=== PATIENT | male | born 1995 | race Caucasian/White ===

== ENCOUNTER 2020-02-24 13:18 | Outpatient (CLI) | payer OTHER ==
[2020-02-24 14:44] VITALS: BP 127/92
--- NOTE | 2020-02-24 14:44 | SLEEP CARE CONSULTATION ---
Information from patient questionnaire entered by Lisa Ni. I have reviewed and concur with the information entered by Lisa Ni. This document represents the service I personally performed and the decisions made by me, Rosibel Torres ARNP. History of Present Illness Service Date and Time: 02/24/2020 1318 Reason for Visit: New patient Chief Complaint: reports: Unrefreshed sleep (most days), Snoring, Observed pauses in breathing, Frequent awakenings at night. denies: Insomnia, Excessive daytime sleepiness, Fatigue Date of Onset: last year Usual bedtime: 10:00 PM Time it takes to fall asleep: 30 minutes Snores at night: Yes Observed to quit breathing while asleep: Yes Sleeps alone due to snoring: Yes Number of times waking at night: 3-4 Reasons for waking at night: reports: Snoring, Gasping for air, Bathroom. denies: Choking Toss, Turn, or Twitch while sleeping: Yes Recalls having dreams: Yes Usually gets out of bed at: 05:30 AM Feels refreshed in the morning: No Morning headache: No Sleepy or fatigued during the day: No Ever fallen asleep while driving: No Takes day naps: No Prior sleep studies: No Additional HPI information: I had the pleasure of seeing SHEILA CARCAMO today regarding the possibility of him having a sleep disorder. His current complaints are snoring, observed pauses in breathing and frequent awakenings at night. His fiance complaining of snoring, has seen pauses in breathing with gasping for air. No family history of sleep apnea but his father does snore and have some pause in breathing. 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 Patient is Single and lives in [place]. Have you smoked in the past 12 months: Yes (E cig) Cigarettes per day (20/pack): 20 Years of smokin Quit date: 2 years ago Smoking Pack Years: 5.0 Alcohol use: Yes Alcohol amount and frequency: 3-4 once a month Caffeine use: Yes Caffeine amount and frequency: once week of cup of caffienated drink Family History Family history of sleep disordered breathing: Yes (Father) Family Hx Sleep Apnea: Father: Snoring Allergies and Home Medications Drug allergies reviewed: Yes (NKDA) Home medication list reviewed: Yes (none taken) Review of Systems Weight gain over past 5 years: 30 Cardiovascular: denies: high blood pressure, irregular heart rate or pulse Gastrointestinal: denies: heartburn, difficulty swallowing Urinary: reports: incontinence Neurological: reports: speech dysfunction. denies: headaches, seizure Psychiatric: denies: Attention Deficit Hyperactivity, anxiety, depression, claustrophobia Ear/Nose/Throat: reports: nasal congestion, dry mouth/throat (sometimes), wisdom teeth removed (still has one). denies: sinus problems, nose bleeds, tonsillectomy Endocrine: denies: thyroid disease Musculoskeletal: reports: joint pain (stiffness) Immunologic: reports: allergies to food or environment Physical Exam Blood Pressure: 127/92 Cuff size: wrist Heart Rate: 64 O2 Saturation: 98 Height: 5 ft 8 in Weight: 204 lb Body Mass Index: 31.0 BMI Classification: Obese Neck circumference: 16.45 (inches) Nostrils: patent to airflow Turbinates: swollen Septum: midline Mouth and throat: narrow oropharynx Uvula visualization: 50% Mallampati Class II Tongue: normal in size Tonsils: small Neck: normal w/o lymphadenopathy or thyromegaly Heart: regular rate and rhythm Lungs: clear bilaterally Impression and Plan 1. Suspected Obstructive Sleep Apnea-Hypopnea Syndrome, as suggested by a history of loud and irregular snoring, observed cessation of breath while asleep, gasping or choking in sleep, frequent awakening during the night, unrefreshed sleep, cognitive impairment, and excessive daytime sleepiness. Narrow oropharynx and obesity are common predisposing factors for obstructive sleep apnea-hypopnea syndrome. I recommend proceeding to polysomnography to confirm the diagnosis and to assess severity. If the patient has significant sleep disordered breathing, a manual CPAP titration study will also be performed to find the optimal treatment pressure. I informed the patient of what the sleep studies involve and after some discussion, obtained agreement to proceed. The pathophysiology of obstructive sleep apnea-hypopnea syndrome was discussed with the patient and health risks of cardiovascular and cerebrovascular disease if not treated. AASM brochure for obstructive sleep apnea-hypopnea syndrome given and reviewed. Risks of drowsy driving discussed in detail and patient advised to avoid long distance driving and to date puller at the first sign of drowsiness. Patient agreed to plan. * Schedule polysomnography +- manual CPAP titration study. * Avoid long distance driving or driving when feeling sleepy. * Avoid alcohol, sedative and muscle relaxant around bedtime. * Attempt to lose weight. * Review instructions provided by trained office staff on how to prepare for the sleep study. * Return for follow-up after sleep study completed. Counseling Topics: Weight loss health impact Visit Type: In Office Time Spent with Patient (minutes): 30 Provider Statement: I spent 100% of the Face to Face Visit with the patient with greater than 50% spent counseling the patient and coordination of care.
== END 2020-02-24 13:19 | disposition home or self-care (01) ==
LOC: SC 13:18
PROVIDERS: ATTEND Nurse Practitioner Family
DX: R06.83 Snoring (principal); R06.81 Apnea, not elsewhere classified; G47.8 Other sleep disorders; R41.89 Other symptoms and signs involving cognitive functions and awareness; G47.10 Hypersomnia, unspecified; E66.9 Obesity, unspecified; Z68.31 Body mass index [BMI] 31.0-31.9, adult
CPT/HCPCS: 99203; 99212

== ENCOUNTER 2020-03-08 08:37 | Outpatient (CLI) | payer OTHER | END 2020-03-08 08:38 | disposition home or self-care (01) | LOC: SC 08:37 | PROVIDERS: ATTEND Nurse Practitioner Family | DX: R06.83 Snoring (principal); G47.10 Hypersomnia, unspecified; G47.8 Other sleep disorders; R53.83 Other fatigue; R06.81 Apnea, not elsewhere classified; E66.3 Overweight; Z68.31 Body mass index [BMI] 31.0-31.9, adult | CPT/HCPCS: 95806 ==

== ENCOUNTER 2020-03-17 07:40 | Outpatient (CLI) | payer OTHER ==
--- NOTE | 2020-03-17 08:15 | SLEEP CARE CONSULTATION ---
Information from patient questionnaire entered by Blanca Moran. I have reviewed and concur with the information entered by Blanca Moran. This document represents the service I personally performed and the decisions made by , Rosibel Torres ARNP. History of Present Illness Service Date and Time: 03/17/2020 0740 Initial [place] Sleepiness Scale score: 10 (in 2019) Current [place] Sleepiness Scale score: 8 Additional HPI information: SHEILA CARCAMO returns for follow up and results of the recently performed home sleep study. The patient was informed of the following findings: He has no significant sleep disordered breathing with an average AHI of 3.9 and cherie oxygen saturation of 90%. He did have an elevated supine AHI of 26.5 with a non-spine AHI 2.84. I explained the pathophysiology behind obstructive sleep apnea. Patient does not have sleep apnea and was advised how weight gain could increase the risk of developing sleep apnea in the future. I strongly encouraged the patient to lose weight. Patient does not have significant sleep disordered breathing but has elevated AHI in supine position so advised positional therapy. Methods to achieve positional management therapy were discussed; such as, positioning with pillows, wearing a T-shirt with tennis balls sewn into the back, Rematee shirt, Zzomba belt and Slumberbump belt. Pamphlets provided on how to obtain the commercially available products. Patient has moderate snoring. Snoring can be reduced by weight loss. Weight loss is best achieved with diet consult. Patient instructed to contact PCP for referral. Snoring can also be treated with an oral appliance from a dentist. Advised to check insurance coverage. In addition, an ENT evaluation can be do to see if other treatment is indicated. Patient counseled not drink alcohol less than 4 hours before bedtime as it can increase snoring and apnea. Patient was cautioned about risks of drowsy driving until sleepiness symptoms resolve. Sleep Study - Results Type of Sleep Study: Home sleep study Prior sleep studies: No Polysomnography/Home Sleep Study results: Physician Impression: The quality of the study is good. The length of the study is adequate (> 240 minutes). Please also see the tabulated and graphic data. 1. No significant sleep disordered breathing, with an AHI of 3.9/hr and cherie SaO2 of 90%. During the study, the patient had 17 apneas (16 obstructive, 0 central, 1 mixed) and 12 hypopneas. The longest episode lasted 55.5 seconds. The few respiratory events occurred almost exclusively during supine sleep (supine AHI was 26.5 and non-supine, 2.84). Allergies and Home Medications Drug allergies reviewed: Yes (NKDA) Home medication list reviewed: Yes (no changes) Review of Systems Review of systems same as previous: Yes (no changes) Physical Exam Heart Rate: 77 O2 Saturation: 98 Height: 5 ft 8 in Weight: 208 lb Body Mass Index: 31.6 BMI Classification: Obese Impression and Plan 1. Snoring but no significant sleep disordered breathing. Patient advised that often weight loss will reduce snoring as well as apnea risk. An oral appliance can also be used for snoring. This would require a dental consultation. Patient cautioned not to use other online appliances as can cause bite issues. A list of accredited dentists in area and one local dentist who makes oral appliances given. Patient is advised to check if insurance will cover. An ENT consult can also be helpful to determine if any other treatment is an option. Since patient has moderate apnea in supine position, patient advised to avoid sleeping on his back. I also advised him to let inform his doctors if he is undergoing anesthesia that he does have moderate apnea in the supine position. He voiced understanding. * Attempt to lose weight * Avoid sleeping supine * Avoid alcohol consumption near bedtime * The patient is cautioned about driving until sleepiness is completely resolved. * Return as needed. Counseling Topics: Weight loss health impact Visit Type: In Office Time Spent with Patient (minutes): 16 Provider Statement: I spent 100% of the Face to Face Visit with the patient with greater than 50% spent counseling the patient and coordination of care.
== END 2020-03-17 07:41 | disposition home or self-care (01) ==
LOC: SC 07:40
PROVIDERS: ATTEND Nurse Practitioner Family
DX: R06.83 Snoring (principal); E66.9 Obesity, unspecified; Z68.31 Body mass index [BMI] 31.0-31.9, adult
CPT/HCPCS: 99212; 99213